=== PATIENT | male | born 1970 | race Caucasian/White ===

== ENCOUNTER 2017-06-25 16:07 | Inpatient (IN) | payer SELFPAY ==
[2017-06-25] MEDS ORDERED: Sodium Chloride 0.9% 10 ML Syringe FLUSH PRN (17:13)
--- NOTE | 2017-06-25 17:13 | PCM.SN ---
- Free Text/Narrative Note: H+P dictated.
[2017-06-25] MEDS: Lactated Ringers 1,000 ML IV SCH (18:33)
[2017-06-25] MEDS: cefOXitin 2 GM in Sodium Chloride 0.9% 100 ML IV SCH (18:34)
--- NOTE | 2017-06-25 19:07 | PREOP ---
ADMISSION DATE: 06/25/2017 CHIEF COMPLAINT: Right upper quadrant abdominal pain. HISTORY OF PRESENT ILLNESS: This is a 46-year-old white male, who developed some abdominal pain on Saturday night while he was attending a wedding. This was accompanied by nausea and vomiting, which has persisted. He had some low- grade fevers on Saturday and has had chills off and on since then. He presented to the clinic today with a complaint of abdominal pain. Subsequent workup demonstrated leukocytosis with normal LFTs. He did have some tenderness in his right upper quadrant, and a right upper quadrant ultrasound was obtained which demonstrated enlarged gallbladder and stones, which appeared to be in the neck of the gallbladder. He denies any obstructive symptoms such as jaundice, acholic stools, or dark urine. The pain is kind of crampy in nature and it is always there. He did have some nausea and vomiting, but this has gotten better and he has been able to keep things down since then. SOCIAL HISTORY: The patient does not smoke. Denies any alcohol use. ALLERGIES: Penicillin which results in a rash. PAST MEDICAL HISTORY: Otherwise unremarkable. PAST SURGICAL HISTORY: Significant for Achilles tendon rupture. FAMILY HISTORY: Significant for melanoma. REVIEW OF SYSTEMS: CONSTITUTIONAL: The patient notes fever and chills. He has had a 20 pounds weight loss, but this is unintentional. HEENT: Essentially negative. PULMONARY: Negative. CARDIAC: Negative. GI: See H and P. He denies any urinary, musculoskeletal, or neurologic issues. PHYSICAL EXAMINATION: GENERAL: This is a well-developed, well-nourished white male, appearing in no acute distress. VITAL SIGNS: Pulse rate is 76, temperature 98.1. He is 128 kg. Blood pressure is 118/72. HEENT: Exam is grossly within normal limits. LUNGS: Clear to auscultation. HEART: Regular rate and rhythm. ABDOMEN: Soft with some tenderness in the right upper quadrant. IMAGING: Ultrasound, former report from [facility] demonstrates acute cholecystitis with impacted gallstone. ASSESSMENT: Cholecystitis, cholelithiasis. PLAN: IV antibiotics, laparoscopic cholecystectomy in the morning. /[id number] /MODL
[2017-06-25] MEDS: Morphine 4 MG/ML Syringe IVPUSH PRN (22:40)
[2017-06-26] MEDS: cefOXitin 2 GM in Sodium Chloride 0.9% 100 ML IV SCH ×3 (02:17→18:19)
[2017-06-26] MEDS: Morphine 4 MG/ML Syringe IVPUSH PRN (02:44)
[2017-06-26] MEDS: Lactated Ringers 1,000 ML IV SCH ×2 (03:41→16:01)
--- NOTE | 2017-06-26 08:02 | PCM.SN ---
- Free Text/Narrative Note: procedures and risks were discussed with the pt to include bleeding, infection, injury to bowel or blood vessel. The need to open was also discussed with the pt. He expressed understanding and asks us to proceed.
[2017-06-26] MEDS ORDERED: Ondansetron 4 MG/2 ML SDV IVPUSH ONE (09:30)
[2017-06-26] MEDS ORDERED: Glycopyrrolate 0.2 MG/ML 5 ML MDV IV ONE (09:30)
[2017-06-26] MEDS ORDERED: Propofol 200 MG/20 ML SDV IV ONE (09:30)
[2017-06-26] MEDS ORDERED: Rocuronium 100 MG/10 ML MDV IV ONE (09:30)
[2017-06-26] MEDS ORDERED: Midazolam 1 MG/ML 2 ML SDV IV ONE (09:30)
[2017-06-26] MEDS ORDERED: Succinylcholine 200 MG/10 ML MDV IV ONE (09:30)
[2017-06-26] MEDS ORDERED: Ketorolac 30 MG/ML SDV IVPUSH ONE (09:30)
[2017-06-26] MEDS ORDERED: fentaNYL 100 MCG/2 ML SDV IV ONE (09:30)
[2017-06-26] MEDS ORDERED: Lactated Ringers 1,000 ML IV ONE (09:30)
[2017-06-26] MEDS ORDERED: Neostigmine Methylsulfate 10 MG/10 ML MDV IVPUSH ONE (09:30)
[2017-06-26] MEDS ORDERED: Bupivacaine 0.5% 30 ML SDV INJECT ONE (09:53)
[2017-06-26] MEDS ORDERED: Lidocaine 1% with EPINEPHrine 1:100,000 20 ML MDV INJECT ONE (09:53)
[2017-06-26] MEDS ORDERED: Ondansetron 4 MG/2 ML SDV IVPUSH PRN (11:39)
--- NOTE | 2017-06-26 11:50 | PCM.OPNOTE ---
- General Post-Op/Procedure Note Date of Surgery/Procedure: 06/26/17 Operative Procedure(s): lap cholecystectomy Findings: inflammed gallbladder with stone critical view obtained. cystic duct was 5 mm ioc was not done. Pre Op Diagnosis: acute cholelithiasis. acute cholecystitis Anesthesia Technique: General ET Tube, Local (5 ml 1 % lido with epi/0.5% buvipicaine) Primary Surgeon: Misbah Hansen Anesthesia Provider: Mitra Freire Pathology: gallbladder and contents. Complications: None Condition: Good Free Text/Narrative:: Intake & Output 06/25/17 06/26/17 06/26/17 22:59 06:59 14:59 Intake Total 100 55 Output Total 300 Balance -200 55 see dictation [id number]
[2017-06-26] MEDS: Morphine 2 MG/ML Syringe IVPUSH PRN ×3 (12:07→21:39)
[2017-06-27] MEDS: Lactated Ringers 1,000 ML IV SCH (00:38)
[2017-06-27] MEDS: Morphine 2 MG/ML Syringe IVPUSH PRN ×2 (02:00→06:46)
[2017-06-27] MEDS: cefOXitin 2 GM in Sodium Chloride 0.9% 100 ML IV SCH (02:04)
--- NOTE | 2017-06-27 08:33 | OR ---
DATE OF OPERATION: 06/26/2017 SURGEON: Misbah Hansen MD PROCEDURE PERFORMED: Laparoscopic cholecystectomy. PREOPERATIVE DIAGNOSIS: Acute cholecystitis with cholelithiasis. POSTOPERATIVE DIAGNOSIS: Acute cholecystitis with cholelithiasis. INDICATIONS FOR PROCEDURE: This is a 46-year-old, white male, who presented to the clinic yesterday with a history of right upper quadrant abdominal pain, nausea, and vomiting, as well as low-grade fevers. Subsequent workup revealed impacted stone with evidence of acute cholecystitis. The patient was admitted for IV antibiotics and was taken to the operating room today for a laparoscopic cholecystectomy. INTRAOPERATIVE FINDINGS: As follows. Critical view was obtained. Large stone was jammed down in the infundibulum which had caused it to fold over the cystic duct. We were able to carefully dissect this free and expose the cystic duct and cystic artery. Cystic duct appeared to measure about 3 mm in diameter. A total of 5 mL of 1:1 mixture of 1% lidocaine with epinephrine, 0.5% bupivacaine was used. DESCRIPTION OF OPERATION: After an excellent general anesthetic was administered, the patient was prepped and draped in the usual sterile manner. Our local mixture was used to infiltrate the base of the umbilicus and a curvilinear incision was made at the base. Blunt dissection was carried out and the midline fascia was exposed. Two Stay sutures of 0 Vicryl were placed on either side of the midline, which was then incised. The abdominal cavity was entered after digital palpation to ensure no adhesions and 10.5-mm Kya trocar was inserted into the patient's abdomen. The patient's abdomen was insufflated to 15 mmHg pressure, and under direct visualization, three 5-mm ports were placed, one in the midline epigastrium and two below the right costal margin at the level of the midclavicular and anterior axillary line. Gallbladder was noted to be markedly inflamed and aspiration needle was placed and the thickened bile was aspirated. This allowed us to grasp the gallbladder and retract in a cephalad fashion. Careful dissection was carried out exposing the infundibulum and we were able to roll the stone back further up into the gallbladder and dissect free the cystic duct and the cystic artery. We were having trouble with maintaining an adequate pharmaceutical compounding supervisor on the infundibulum. A suture of 2-0 Ethibond was placed through the infundibulum which allowed us to grasp it and allowed us to control the infundibulum much better. After careful dissection with both a right-angle as well as a Kittner, we were able to adequately identify the cystic duct and the cystic artery. Three clips were placed proximally on the cystic duct and one distally. This was then transected and the process was repeated with three clips proximally and one distally on the cystic artery. Careful L- hook cautery dissection was carried out, dissecting the gallbladder free from the gallbladder fossa. Specimen was then passed into a bag and delivered out through the umbilical incision. We did have to extend the incision superiorly through the umbilicus to allow us to deliver the stone which was quite large. The umbilical incision was then partially closed with a running 0 Ethibond. This allowed us to replace our pneumoperitoneum. The gallbladder fossa bed was irrigated and we noted that we had excellent hemostasis. After irrigating until clear, the 5-mm trocars were removed under direct visualization. The umbilical port was closed with more 0 Vicryl and the 2 stay sutures were tied to each other. Skin was closed with travis. Needle, sponge, and instrument counts were reported as correct. The patient was taken to recovery in good condition. /[id number] JOVANI/MADISON CC: Sasha Rosa PA-C
--- NOTE | 2017-06-27 09:19 | PCM.DCSUM1 ---
Discharge Summary - Hospital Course Free Text/Narrative:: Pt admitted with acute cholelithiasis, cholecystitis. Underwent a lap cholecystectomy the following morning. since surgery his WBC has returned to normal. He is tolerating a diet and is ready for discharge. - Discharge Data Discharge Date: 06/27/17 Discharge Disposition: Home, Self-Care 01 Condition: Good - Discharge Diagnosis/Problem(s) (1) Acute cholecystitis due to biliary calculus SNOMED Code(s): 19389506061259 ICD Code: K80.00 - CALCULUS OF GALLBLADDER W ACUTE CHOLECYST W/O OBSTRUCTION Status: Resolved Current Visit: Yes (2) Status post laparoscopic cholecystectomy SNOMED Code(s): 773166023, 80030441, 600264333 ICD Code: Z90.49 - ACQUIRED ABSENCE OF OTHER SPECIFIED PARTS OF DIGESTIVE TRACT Status: Acute Current Visit: Yes - Patient Summary/Data Operative Procedure(s) Performed: lap cholecystectomy - Patient Instructions Diet: Usual Diet as Tolerated, No Alcoholic Beverages Activity: No Lifting Over 25 Pounds, No Strenuous Activities, Rest and Relax Today Driving: Do Not Drive (for 7 days ) Showering/Bathing: May Shower, No Tub Bathing/Swimming Notify Provider of: Swelling and Redness, Drainage - Discharge Plan Prescriptions/Med Rec: Acetaminophen/HYDROcodone [[place] 325-5 MG] 1 - 2 tab PO Q6H PRN #30 tab PRN Reason: Pain Home Medications: Home Meds Acetaminophen [Tylenol Extra Strength] 1,000 mg PO Q6H PRN 06/26/17 [History] Acetaminophen/HYDROcodone [[place] 325-5 MG] 1 - 2 tab PO Q6H PRN #30 tab [Rx] Referrals: Misbah Hansen MD [Physician] - 07/04/17 (for travis ) - Discharge Summary/Plan Comment DC Time >30 min.: No - General Info Functional Status: Reports: Pain Controlled, Tolerating Diet, Ambulating, Urinating. Denies: New Symptoms - Review of Systems Gastrointestinal: Reports: Abdominal Pain (incisional ) - Patient Data Vitals - Most Recent: Last Vital Signs Temp 36.9 C 06/27/17 05:50 Pulse 74 06/27/17 05:50 Resp 18 06/27/17 05:50 BP 113/72 06/27/17 05:50 Pulse Ox 92 L 06/27/17 05:50 Weight - Most Recent: 127.55 kg I&O - Last 24 hours: Intake & Output 06/26/17 06/27/17 06/27/17 22:59 06:59 14:59 Intake Total 260 1054 100 Output Total 850 Balance 260 1054 -750 Lab Results - Last 24 hrs: Laboratory Results - last 24 hr 06/27/17 06/27/17 Range/Units 06:25 06:25 WBC 11.3 (4.5-12.0) X10-3/uL RBC 4.55 (4.30-5.75) x10(6)uL Hgb 13.1 (11.5-15.5) g/dL Hct 38.6 (30.0-51.3) % MCV 84.8 (80-96) fL MCH 28.9 (27.7-33.6) pg MCHC 34.0 (32.2-35.4) g/dL RDW 12.9 (11.5-15.5) % Plt Count 323 (125-369) X10(3)uL MPV 8.1 (7.4-10.4) fL Add Manual Diff Yes Neutrophils % (Manual) 64 (46-82) % Lymphocytes % (Manual) 20 (13-37) % Monocytes % (Manual) 13 H (4-12) % Eosinophils % (Manual) 3 (0-5) % Sodium 139 (135-145) mmol/L Potassium 3.8 (3.5-5.3) mmol/L Chloride 102 (100-110) mmol/L Carbon Dioxide 29 (23-29) mmol/L BUN 10 (5-20) mg/dL Creatinine 1.0 (0.6-1.3) mg/dL Est Cr Clr Drug Dosing 110.32 mL/min Estimated GFR (MDRD) > 60 (>60) BUN/Creatinine Ratio 10.0 (9-20) Glucose 100 (80-116) mg/dL Calcium 8.4 L (8.6-10.2) mg/dL Total Bilirubin 1.4 H (0.1-1.3) mg/dL AST 23 (5-27) IU/L ALT 38 H (14-26) IU/L Alkaline Phosphatase 58 (56-112) IU/L Total Protein 6.2 (6.0-8.0) g/dL Albumin 3.3 L (3.5-5.2) g/dL Globulin 2.9 g/dL Albumin/Globulin Ratio 1.1 Med Orders - Current: Current Medications Lactated Ringer's (Ringers, Lactated) 1,000 mls @ 125 mls/hr IV ASDIRECTED JANKI Last Admin: 06/27/17 00:38 Dose: 125 mls/hr Cefoxitin Sodium 2 gm/ Sodium (Chloride) 100 mls @ 200 mls/hr IV Q8H [facility] Last Admin: 06/27/17 02:04 Dose: 200 mls/hr Morphine Sulfate (Morphine) 4 mg IVPUSH Q4H PRN PRN Reason: Pain Last Admin: 06/26/17 02:44 Dose: 4 mg Ondansetron HCl (Zofran) 4 mg IVPUSH Q6H PRN PRN Reason: Nausea/Vomiting Sodium Chloride (Saline Flush) 10 ml FLUSH ASDIRECTED PRN PRN Reason: Keep Vein Open Last Admin: 06/25/17 18:34 Dose: 10 ml Discontinued Medications Bupivacaine HCl (Marcaine 0.5%) 12 ml INJECT .STK-MED ONE Stop: 06/26/17 09:54 Last Admin: 06/26/17 09:53 Dose: 12 ml Fentanyl (Sublimaze) 200 mcg IV .STK-MED ONE Stop: 06/26/17 09:31 Glycopyrrolate (Robinul) 0.4 mg IV .STK-MED ONE Stop: 06/26/17 09:31 Cefoxitin Sodium 2 gm/ Sodium (Chloride) 100 mls @ 200 mls/hr IV Q8H [facility] Last Admin: 06/26/17 02:17 Dose: 200 mls/hr Lactated Ringer's (Ringers, Lactated) 1,000 mls @ as directed IV .STK-MED ONE Stop: 06/26/17 09:31 Ketorolac Tromethamine (Toradol) 30 mg IVPUSH .STK-MED ONE Stop: 06/26/17 09:31 Lidocaine/Epinephrine (Xylocaine 1% With Epinephrine 1:100,000) 12 ml INJECT .STK-MED ONE Stop: 06/26/17 09:54 Last Admin: 06/26/17 09:53 Dose: 12 ml Midazolam HCl (Versed 1 Mg/Ml) 2 mg IV .STK-MED ONE Stop: 06/26/17 09:31 Morphine Sulfate (Morphine) 2 mg IVPUSH Q3M PRN PRN Reason: Abdominal Pain Last Admin: 06/27/17 06:46 Dose: 2 mg Neostigmine Methylsulfate (Neostigmine Methylsulfate) 2 mg IVPUSH .STK-MED ONE Stop: 06/26/17 09:31 Ondansetron HCl (Zofran) 4 mg IVPUSH .STK-MED ONE Stop: 06/26/17 09:31 Propofol (Diprivan 20 Ml) 200 mg IV .STK-MED ONE Stop: 06/26/17 09:31 Rocuronium [place] (Zemuron) 50 mg IV .STK-MED ONE Stop: 06/26/17 09:31 Succinylcholine Chloride (Quelicin) 160 mg IV .STK-MED ONE Stop: 06/26/17 09:31 - Exam General: Reports: Alert, Oriented, No Acute Distress Lungs: Reports: Clear to Auscultation, Normal Respiratory Effort Cardiovascular: Reports: Regular Rate, Regular Rhythm GI/Abdominal Exam: Normal Bowel Sounds, Soft, Non-Tender *Q Meaningful Use (DIS) - VTE *Q VTE Criteria *Q: VTE Anticoagulation Contraindications: Medical/Procedure Contrai - Stroke *Q Stroke Criteria *Q: - AMI *Q AMI Criteria *Q:
[2017-06-27 10:59] VITALS: BP 122/65
== END 2017-06-27 10:35 | disposition home or self-care (01) | DRG 419 ==
LOC: FB.DI 16:07 → FB.MS 17:03
PROVIDERS: ADMIT Surgery; ATTEND Surgery
PROC: 0FT44ZZ Resection of Gallbladder, Percutaneous Endoscopic Approach (ICD-10-PCS; principal; 2017-06-25)
DX: K80.00 Calculus of gallbladder with acute cholecystitis without obstruction (principal); Z88.0 Allergy status to penicillin
CPT/HCPCS: 00790-QZ; 36415; 76705; 80053; 82247; 82248; 85025; 88304; 94150; J0330; J0694; J1885; J2250; J2270; J2405; J2704; J2710; J3010; J7030; J7050; J7120